=== PATIENT | female | born 1950 | race Caucasian/White ===

== ENCOUNTER 2022-07-22 11:43 | Emergency (ER) | payer MEDICARE, BC ==
[~2022-07-22] VITALS: Ht 152.4 cm; Wt 61.7 kg
--- NOTE | 2022-07-22 11:50 | NUR ---
DR LÓPEZ AT BEDSIDE FOR EVAL. WAITING FOR ORDERS.
--- NOTE | 2022-07-22 11:55 | NUR ---
[id number] FROM HOME FOR NAUSEA AND VOMITING FOR 1 HOUR. PUT IN BED , IV INSERTED AT [facility], BLD COLLECTED AND SENT TO LAB.
[2022-07-22] MEDS ORDERED: ONDANSETRON HCL/PF 4 MG/2 ML VIAL ONE (11:57)
[2022-07-22] MEDS ORDERED: IV NS 0.9% 1,000 ML BAG IV ONE (12:00)
[2022-07-22] MEDS ORDERED: ONDANSETRON HCL/PF 4 MG/2 ML VIAL IVP ONE (12:00)
--- NOTE | 2022-07-22 12:13 | NUR ---
PT TO CT [facility]IA [facility]
--- NOTE | 2022-07-22 12:21 | NUR ---
PT BACK FROM CT [facility]IA [facility]
[2022-07-22 12:28] LABS: BASOPHILS # (AUTO) 0.1 K/uL (0.0-0.2); BASOPHILS % (AUTO) 0.7 % (0.0-2.0); CALCIUM, SERUM 9.6 mg/dL (8.5-10.1); CREATININE 0.7 mg/dL (0.6-1.3); EOSINOPHILS % (AUTO) 0.3 % (0.0-6.0); HEMATOCRIT 44 % (33-45); HEMOGLOBIN 14.3 g/dL (11.5-14.8); LYMPHOCYTES # (AUTO) 2.3 K/uL (0.8-4.8); LYMPHOCYTES % (AUTO) 20.6 % (20.0-44.0); MEAN CORPUSCULAR HGB CONC 33 g/dl (31.0-36.0); MEAN CORPUSCULAR VOLUME 93 fL (82-100); MONOCYTES # (AUTO) 0.5 K/uL (0.1-1.30); MONOCYTES % (AUTO) 4.2 % (2.0-12.0); NEUTROPHILS # (AUTO) 8.4 K/uL (1.8-8.9); NEUTROPHILS % (AUTO) 74.2 % (43.0-81.0); PLATELET COUNT (AUTO) 307 K/uL (150-450); POTASSIUM 3.5 mmol/L (3.5-5.1); WHITE BLOOD COUNT (AUTO) 11.3 K/uL (4.3-11.0)
--- NOTE | 2022-07-22 12:28 | NUR ---
URINE NOT COLLECTED, OFFRERED BEDPAN AT BEDSIDE
[2022-07-22 12:34] LABS: ALBUMIN 4.1 g/dL (3.4-5.0); BILIRUBIN,DIRECT 0.1 mg/dL (0.0-0.2); BILIRUBIN,TOTAL 0.4 mg/dL (0.2-1.0); TOTAL PROTEIN, SERUM 7.4 g/dL (6.4-8.2)
--- NOTE | 2022-07-22 12:50 | NUR ---
Willie barrett in [facility] - 07/22/22 at 1251 by DAVID PT SIGNED THE DISCHARGE PAPER AND WAS GIVEN THE INSTRUCTION.
--- NOTE | 2022-07-22 13:01 | NUR ---
URINE COLLECTED, AND SENT TO LAB
[2022-07-22 13:30] LABS: BILIRUBIN,URINE NEGATIVE (NEGATIVE); COLOR,URINE YELLOW (YELLOW); LEUKOCYTE ESTERASE ,URINE NEGATIVE (NEGATIVE); NITRITE, URINE NEGATIVE (NEGATIVE); PROTEIN,URINE NEGATIVE (NEGATIVE); UGLUCOSE TRACE mg/dL (NEGATIVE); UROBILINOGEN,URINE 0.2 EU/dL (0.2)
[2022-07-22] MEDS ORDERED: ONDA4TAB5 PO (13:34)
[2022-07-22] MEDS ORDERED: AMOX-430 PO (13:34)
--- NOTE | 2022-07-22 13:38 | NUR ---
Patient is resting comfortably in bed with eyes closed. Easily aroused. VSS
[2022-07-22 13:57] LABS: RBC,URINE 0-2 /HPF (0-2); WBC,URINE 0-2 /HPF (0-3)
[2022-07-22 13:58] LABS: BACTERIA,URINE Moderate /HPF (None Seen); SQUAMOUS EPITHELIAL CELL,UR Moderate /HPF (None Seen)
--- NOTE | 2022-07-22 14:11 | NUR ---
Patient discharged to home in stable condition. Written and verbal after care instructions given. Patient verbalizes understanding of instruction.
--- NOTE | 2022-07-22 14:11 | NUR ---
IV removed. Catheter intact and site benign. Pressure and 4x4 applied to site. No bleeding noted.
[2022-07-22 14:12] VITALS: BP 170/85
== END 2022-07-22 14:13 | disposition home or self-care (01) ==
LOC: ER 11:49
DX: K52.9 Noninfective gastroenteritis and colitis, unspecified (principal); E86.0 Dehydration; R42 Dizziness and giddiness
CPT/HCPCS: 99285; 74176; 96374; 96361; 85025; 80048; 87086; 83690; 80076; 81001; 36415; J2405; J7030; A4649

== ENCOUNTER 2022-07-24 16:01 | Emergency (ER) | payer MEDICARE, BC ==
[~2022-07-24] VITALS: Ht 154.9 cm; Wt 55.8 kg
[~2022-07-24 16:01] MED LIST: AMOX-430 PO; ONDA4TAB5 PO
--- NOTE | 2022-07-24 16:30 | NUR ---
at bedside for eval
[2022-07-24] MEDS ORDERED: MECLIZINE HCL 12.5 MG TABLET PO ONE (17:30)
[2022-07-24 17:32] LABS: BASOPHILS # (AUTO) 0.1 K/uL (0.0-0.2); BASOPHILS % (AUTO) 0.6 % (0.0-2.0); EOSINOPHILS % (AUTO) 2.2 % (0.0-6.0); HEMATOCRIT 43 % (33-45); HEMOGLOBIN 13.9 g/dL (11.5-14.8); LYMPHOCYTES # (AUTO) 2.2 K/uL (0.8-4.8); LYMPHOCYTES % (AUTO) 22.6 % (20.0-44.0); MEAN CORPUSCULAR HGB CONC 33 g/dl (31.0-36.0); MEAN CORPUSCULAR VOLUME 93 fL (82-100); MONOCYTES # (AUTO) 0.9 K/uL (0.1-1.30); MONOCYTES % (AUTO) 8.7 % (2.0-12.0); NEUTROPHILS # (AUTO) 6.5 K/uL (1.8-8.9); NEUTROPHILS % (AUTO) 65.9 % (43.0-81.0); PLATELET COUNT (AUTO) 311 K/uL (150-450); RED BLOOD CELL COUNT(AUTO) 4.61 MIL/uL (4.0-5.2); WHITE BLOOD COUNT (AUTO) 9.9 K/uL (4.3-11.0)
[2022-07-24 17:57] LABS: CALCIUM, SERUM 9.1 mg/dL (8.5-10.1); CARBON DIOXIDE 30 mmol/L (21-32); CHLORIDE 106 mmol/L (98-107); CREATININE 0.7 mg/dL (0.6-1.3); GLUCOSE 90 mg/dL (74-106); POTASSIUM 3.7 mmol/L (3.5-5.1); SODIUM SERUM 143 mmol/L (136-145); UREA NITROGEN, BLOOD 14 mg/dL (7-18)
[2022-07-24] MEDS ORDERED: MECLIZINE HCL 25 MG TABLET ONE (18:05)
[2022-07-24] MEDS ORDERED: AMLODIPINE BESYLATE 5 MG TABLET PO ONE ×2 (19:30→21:30)
[2022-07-24] MEDS ORDERED: AMLODIPINE BESYLATE 5 MG TABLET ONE ×2 (20:21→21:59)
[2022-07-24] MEDS ORDERED: AMLO-213 PO (22:21)
[2022-07-24 22:51] VITALS: BP 178/82
[2022-07-24] MEDS ORDERED: MECL-159 PO (22:56)
== END 2022-07-24 22:51 | disposition home or self-care (01) ==
LOC: ER 16:08
DX: R42 Dizziness and giddiness (principal); I10 Essential (primary) hypertension; Z79.899 Other long term (current) drug therapy
CPT/HCPCS: 99285; 71045; 93005; 85025; 80048; 36415; 84484; J8597; J7040; A4223